=== PATIENT | female | born 1990 | race Caucasian/White ===

== ENCOUNTER 2020-07-09 06:52 | Inpatient (IN) ==
[2020-07-09 09:03] LABS: Bacteria,Urine Few per hpf (None-Few); Bilirubin,Urine Negative (Negative); Blood,Urine Small (Negative); Clarity,Urine Turbid (Clear); Color,Urine Light-Yellow (Yellow); Glucose,Urine (UA) Normal (Normal); Ketones,Urine Negative (Negative); Leukocyte Esterase,Urine Trace (Negative); Mucus,Urine Few per lpf (None-Few); Nitrite,Urine Negative (Negative); PH,Urine 6.5 pH Units (5.0-8.0); Protein,Urine Negative (Neg-Trace); RBC,Urine 0-3 per hpf (0-3); Squamous Epithelial Cell,Urine Moderate per hpf (None-Few); Urobilinogen,Urine Normal (Normal)
[2020-07-09] MEDS ORDERED: Ondansetron 4 MG/2 ML VIAL IVP PRN (09:36)
[2020-07-09] MEDS ORDERED: *HR* FentaNYL (PF) 100 MCG/2 ML VIAL IVP PRN (09:36)
[2020-07-09] MEDS ORDERED: Famotidine 20 MG/2 ML VIAL IVP PRN (09:36)
[2020-07-09] MEDS ORDERED: Naloxone 0.4 MG/ML INJ IVP PRN (09:36)
[2020-07-09] MEDS ORDERED: Azithromycin 500 MG in 0.9 % Sodium Chloride 250 ML IVPB ONE (09:36)
[2020-07-09] MEDS ORDERED: Metoclopramide 10 MG/2 ML VIAL IVP PRN (09:36)
[2020-07-09] MEDS ORDERED: Ringers Solution, Lactated 1,000 ML IVC SCH (09:45)
[2020-07-09 10:52] LABS: Basophils # 0.1 K/mcL (0.0-0.2); Basophils % 0.4 %; Eosinophils # 0.2 K/mcL (0.0-0.6); Hematocrit 38.3 % (35.3-44.9); Hemoglobin 12.6 g/dL (11.5-15.4); Immature Granulocytes % 1.1 % (0-4); Lymphocytes # 3.1 K/mcL (0.6-4.6); Lymphocytes % 18.2 %; Mean Corpuscular HGB Conc 32.9 g/dL (31.6-35.5); Mean Corpuscular Hemoglobin 30.8 pg (28.0-33.3); Mean Corpuscular Volume 93.6 fL (83.0-100.0); Mean Platelet Volume 11.5 fL (9.4-12.4); Monocytes # 0.8 K/mcL (0.0-1.3); Monocytes % 4.4 %; Neutrophils # 12.8 K/mcL (1.6-8.9); Platelet Count 259 K/mcL (140-400); Red Blood Count 4.09 M/mcL (3.82-4.97); Red Cell Distribution Width 13.6 % (11.5-14.5); Segmented Neutrophils % 74.9 %
[2020-07-09 11:08] LABS: Amphetamine Screen,Urine Negative ng/mL (Cutoff=1000); Barbiturate Screen,Urine Negative ng/mL (Cutoff=200); Benzodiazepines Screen,Urine Negative ng/mL (Cutoff=200); Cannabinoid Screen,Urine Negative ng/mL (Cutoff = 50); Cocaine Screen,Urine Negative ng/mL (Cutoff= 300); Opiate Screen,Urine Negative ng/mL (Cutoff=300); Phencyclidine Screen,Urine Negative ng/mL (Cutoff=25)
[2020-07-09] MEDS ORDERED: Oxytocin 20 units/ LR 1000 mL 20 UNIT/1,000 ML BAG IVC SCH ×2 (12:00→21:47)
[2020-07-09] MEDS ORDERED: Clindamycin 900 MG/50 ML 900 MG/50 ML IV.SOLN IVPB SCH (14:00)
[2020-07-09] MEDS ORDERED: EPHEDrine 50 MG/ML VIAL IVP PRN (14:10)
[2020-07-09] MEDS ORDERED: Epidural Premix (fent/bupiv) 110 ML EP SCH (14:15)
[2020-07-09] MEDS ORDERED: Acetaminophen 325 MG TABLET PO PRN (21:47)
[2020-07-09] MEDS ORDERED: Measles/Mumps/Rubella Vacc 0.5 ML VIAL SQ PRN (21:47)
[2020-07-10 05:18] LABS: Basophils # 0.1 K/mcL (0.0-0.2); Basophils % 0.2 %; Eosinophils # 0.1 K/mcL (0.0-0.6); Eosinophils % 0.5 %; Hematocrit 36.3 % (35.3-44.9); Hemoglobin 11.8 g/dL (11.5-15.4); Immature Granulocytes % 0.8 % (0-4); Lymphocytes # 3.3 K/mcL (0.6-4.6); Lymphocytes % 13.7 %; Mean Corpuscular HGB Conc 32.5 g/dL (31.6-35.5); Mean Corpuscular Hemoglobin 30.7 pg (28.0-33.3); Mean Corpuscular Volume 94.5 fL (83.0-100.0); Mean Platelet Volume 11.4 fL (9.4-12.4); Monocytes # 1.5 K/mcL (0.0-1.3); Monocytes % 6.2 %; Platelet Count 226 K/mcL (140-400); Red Blood Count 3.84 M/mcL (3.82-4.97); Red Cell Distribution Width 13.5 % (11.5-14.5); Segmented Neutrophils % 78.6 %; White Blood Count 24.2 K/mcL (4.3-11.1)
[2020-07-10] MEDS: Prenatal Vit/FA 1 EACH TABLET PO SCH (07:39)
[2020-07-10] MEDS: Ibuprofen 600 MG TABLET PO PRN (07:55)
[2020-07-11] MEDS: Ibuprofen 600 MG TABLET PO PRN ×2 (02:04→08:02)
[2020-07-11 07:56] VITALS: BP 106/63
[2020-07-11] MEDS: Prenatal Vit/FA 1 EACH TABLET PO SCH (08:03)
== END 2020-07-11 11:29 | disposition home or self-care (01) | DRG 807 ==
LOC: 1NENULAB → OBSVTOIN 06:52 → 1NENULAB 16:27 → 1NENUOBS 21:49
PROVIDERS: ADMIT Obstetrics & Gynecology; ATTEND Obstetrics & Gynecology